=== PATIENT | male | born 1995 | race Caucasian/White ===

== ENCOUNTER 2017-11-08 14:46 | Emergency (ER) | payer SELFPAY ==
[2017-11-08 14:48] VITALS: BP 138/78; PULSE 82; RESP 18; TEMP 36.6; O2SAT 99
--- NOTE | 2017-11-08 14:52 | DI.RAD.S_ITS ---
PROCEDURE: XR ANKLE RT MIN 3V INDICATIONS: difficult to bear weight TECHNIQUE: 3 views of the right ankle were acquired. COMPARISON: None. FINDINGS: Bones: No fractures or dislocations. Ankle mortise is normally aligned. No suspicious bony lesions. Soft tissues: No tibiotalar joint effusion. Achilles tendon appears normal. IMPRESSION: No ankle fracture or dislocation. Dictated by: Kian Cardoza M.D. on 11/08/2017 at 15:57 Approved by: Kian Cardoza M.D. on 11/08/2017 at 15:57
--- NOTE | 2017-11-08 16:43 | ED.LOWEXIN ---
HPI - Extremity Injury (Lower) <LV Freeman - Last Filed: 11/08/17 17:47> General Chief Complaint: Extremity Injury, Lower Stated Complaint: THINKS HE BROKE HIS RIGHT ANKLE Time Seen by Provider: 11/08/17 16:15 Source: patient Mode of arrival: ambulatory Limitations: no limitations History of Present Illness HPI Narrative: Patient presents with chief complaint of right ankle pain. He fell while skateboarding last . He states that he rolled his right ankle in. He feels it is not getting better. He has taken ibuprofen at home. He denies any numbness or tingling. He does work on his feet and works cutting trees. Denies any previous injury to that ankle. He is concerned it is broken. Review of Systems <SUKHWINDER Freeman - Last Filed: 11/08/17 17:47> Review of Systems GENERAL: Denies chills, fatigue, malaise, fever, sweats. HEENT: Denies sinus pain, ear pain, sore throat, difficulty swallowing, dizziness. RESPIRATORY: Denies dyspnea, cough, wheezing, hemoptysis, sputum. CARDIOVASCULAR: Denies chest pain, palpitations, orthopnea, edema, GASTROINTESTINAL: Denies nausea, vomiting, abdominal pain, diarrhea, constipation, melena. : Denies dysuria, frequency, incontinence, hematuria, urinary retention. MUSCULOSKELETAL: See HPI SKIN: Denies rash, skin lesions, or other NEUROLOGIC: Denies weakness, headache, numbness, change in speech, confusion, seizures, incoordination. PSYCHIATRIC: No concerning psychosocial issues. 12 point review of systems is negative except for those stated above Exam <SUKHWINDER Freeman - Last Filed: 11/08/17 17:47> Narrative Exam Narrative: GENERAL: This is a well-nourished, well-developed patient, no acute distress sitting on hallway. HEAD: Atraumatic. Normocephalic. No temporal or scalp tenderness. EYES: Pupils equal round and reactive. Extraocular motions intact. No scleral icterus. No injection or drainage. ENT: Nose without bleeding, purulent drainage or septal hematoma. Throat without erythema, tonsillar hypertrophy or exudate. Uvula midline. Airway patent. NECK: Trachea midline. No JVD or lymphadenopathy. Supple, nontender, no meningeal signs. CARDIOVASCULAR: Regular rate and rhythm without murmurs, gallops, or rubs. RESPIRATORY: Clear to auscultation. Breath sounds equal bilaterally. No wheezes, rales, or rhonchi. GASTROINTESTINAL: Abdomen soft, non-tender, nondistended. No hepato-splenomegaly, or palpable masses. No guarding. EXTREMITIES: Right foot has positive pedal pulses. Patient is able to extend and flex right foot, does complain of some pain right lateral malleolus with flexion. Patient is able to pronate and supinate right ankle with pain on pronation. Capillary refill less than 2 sec all toes right foot. BACK: Nontender without deformity or crepitance. No flank tenderness. NEURO: AOx3. SKIN: No rash or erythema. No ecchymosis noted right ankle. Slight swelling noted distal to lateral malleolus. Initial Vital Signs Initial Vital Signs: Vital Signs Temperature 97.8 F 11/08/17 14:48 Pulse Rate 82 11/08/17 14:48 Respiratory Rate 18 11/08/17 14:48 Blood Pressure 138/78 H 11/08/17 14:48 Pulse Oximetry 99 11/08/17 14:48 <Rufus Ryan MD - Last Filed: 11/12/17 08:22> Initial Vital Signs Initial Vital Signs: Vital Signs Temperature 97.8 F 11/08/17 14:48 Pulse Rate 82 11/08/17 14:48 Respiratory Rate 18 11/08/17 14:48 Blood Pressure 138/78 H 11/08/17 14:48 Pulse Oximetry 99 11/08/17 14:48 Course <SUKHWINDER Freeman - Last Filed: 11/08/17 17:47> Orders Ordered: ED Orders 11/08/17 14:52 XR ankle RT min 3V Stat Vital Signs - 8 hr 11/08/17 14:48 Temperature 97.8 F Pulse Rate 82 Respiratory Rate 18 Blood Pressure 138/78 H Pulse Oximetry 99 <Rufus Ryan MD - Last Filed: 11/12/17 08:22> Orders Ordered: ED Orders 11/08/17 14:52 XR ankle RT min 3V Stat Vital Signs - 8 hr 11/08/17 14:48 Temperature 97.8 F Pulse Rate 82 Respiratory Rate 18 Blood Pressure 138/78 H Pulse Oximetry 99 MDM - Extremity Injury (Lower) <Shiela CorreiaBERKLEYP-BC - Last Filed: 11/08/17 17:47> Imaging Data right ankle xray: Radiologist's impression: View Report History [address] [address] XRay Report Signed Patient: Navi Moreon MR#: [id number] : 1995 Acct:[id number] Age/Sex: 22 / M Date of Service: 11/08/17 Loc: ED Accession Number: [id number] Procedure: XR ankle RT min 3V Ordering Provider: Rufus Ryan M.D. PROCEDURE: XR ANKLE RT MIN 3V INDICATIONS: difficult to bear weight TECHNIQUE: 3 views of the right ankle were acquired. COMPARISON: None. FINDINGS: Bones: No fractures or dislocations. Ankle mortise is normally aligned. No suspicious bony lesions. Soft tissues: No tibiotalar joint effusion. Achilles tendon appears normal. IMPRESSION: No ankle fracture or dislocation. Dictated by: Kian Cardoza M.D. on 11/08/2017 at 15:57 Approved by: Kian Cardoza M.D. on 11/08/2017 at 15:57 [facility] [place] Narrative Medical decision making narrative: Patient presented with right ankle pain Status post skateboarding accident last week. He states he internally rotated his foot. He had a negative x-ray, and has good range of motion and good strength. I discussed at length rest eyes compression and elevation as well as [id number] pain medications as needed. He declined a split or brace in the emergency department, stating he has one at home. 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 Discussed at length follow-up if worsening or no improvement. Discharge Plan Departure Patient Disposition: Home, Self-Care Clinical Impression: Acute right ankle pain Discharge Date/Time: 11/08/17 17:01 Interventions: ED Discharge Assessment Last Done: 11/08/17 17:00 Instructions: How To Perform RICE (Rest, Ice, Compress, Elevate), DI for Ankle Pain Activity Restrictions/Additional Instructions: Your x-ray came back negative for any acute fracture. I suggest rest, ice compression and elevation along with njyq-hxk-ehokjlb medications as needed and able. As we discussed follow up with your primary care provider if worsening or no improvement. You may need physical therapy or further imaging if worsening or no improvement. You can always use the ankle splint that you have at home for comfort. I am giving you a few days off of work; if you are not ready to go back, please follow-up with her primary care provider <Rufus Ryan MD - Last Filed: 11/12/17 08:22> Sign Out Provider Sign Out Attestation: The PA/MOLD PRESSER functioned independently for the care of this pt, I was available, but not asked to participate in care. I am unable to determine appropriateness of management without personally examining the pt.
--- NOTE | 2017-11-08 16:50 | ED_ITS ---
HPI - Extremity Injury (Lower) <LV Freeman - Last Filed: 11/08/17 17:47> General Chief Complaint: Extremity Injury, Lower Stated Complaint: THINKS HE BROKE HIS RIGHT ANKLE Time Seen by Provider: 11/08/17 16:15 Source: patient Mode of arrival: ambulatory Limitations: no limitations History of Present Illness HPI Narrative: Patient presents with chief complaint of right ankle pain. He fell while skateboarding last . He states that he rolled his right ankle in. He feels it is not getting better. He has taken ibuprofen at home. He denies any numbness or tingling. He does work on his feet and works cutting trees. Denies any previous injury to that ankle. He is concerned it is broken. Review of Systems <SUKHWINDER Freeman - Last Filed: 11/08/17 17:47> Review of Systems GENERAL: Denies chills, fatigue, malaise, fever, sweats. HEENT: Denies sinus pain, ear pain, sore throat, difficulty swallowing, dizziness. RESPIRATORY: Denies dyspnea, cough, wheezing, hemoptysis, sputum. CARDIOVASCULAR: Denies chest pain, palpitations, orthopnea, edema, GASTROINTESTINAL: Denies nausea, vomiting, abdominal pain, diarrhea, constipation, melena. : Denies dysuria, frequency, incontinence, hematuria, urinary retention. MUSCULOSKELETAL: See HPI SKIN: Denies rash, skin lesions, or other NEUROLOGIC: Denies weakness, headache, numbness, change in speech, confusion, seizures, incoordination. PSYCHIATRIC: No concerning psychosocial issues. 12 point review of systems is negative except for those stated above Exam <SUKHWINDER Freeman - Last Filed: 11/08/17 17:47> Narrative Exam Narrative: GENERAL: This is a well-nourished, well-developed patient, no acute distress sitting on hallway. HEAD: Atraumatic. Normocephalic. No temporal or scalp tenderness. EYES: Pupils equal round and reactive. Extraocular motions intact. No scleral icterus. No injection or drainage. ENT: Nose without bleeding, purulent drainage or septal hematoma. Throat without erythema, tonsillar hypertrophy or exudate. Uvula midline. Airway patent. NECK: Trachea midline. No JVD or lymphadenopathy. Supple, nontender, no meningeal signs. CARDIOVASCULAR: Regular rate and rhythm without murmurs, gallops, or rubs. RESPIRATORY: Clear to auscultation. Breath sounds equal bilaterally. No wheezes , rales, or rhonchi. GASTROINTESTINAL: Abdomen soft, non-tender, nondistended. No hepato-splenomegaly , or palpable masses. No guarding. EXTREMITIES: Right foot has positive pedal pulses. Patient is able to extend and flex right foot, does complain of some pain right lateral malleolus with flexion. Patient is able to pronate and supinate right ankle with pain on pronation. Capillary refill less than 2 sec all toes right foot. BACK: Nontender without deformity or crepitance. No flank tenderness. NEURO: AOx3. SKIN: No rash or erythema. No ecchymosis noted right ankle. Slight swelling noted distal to lateral malleolus. Initial Vital Signs Initial Vital Signs: Vital Signs Temperature 97.8 F 11/08/17 14:48 Pulse Rate 82 11/08/17 14:48 Respiratory Rate 18 11/08/17 14:48 Blood Pressure 138/78 H 11/08/17 14:48 Pulse Oximetry 99 11/08/17 14:48 <Rufus Ryan MD - Last Filed: 11/12/17 08:22> Initial Vital Signs Initial Vital Signs: Vital Signs Temperature 97.8 F 11/08/17 14:48 Pulse Rate 82 11/08/17 14:48 Respiratory Rate 18 11/08/17 14:48 Blood Pressure 138/78 H 11/08/17 14:48 Pulse Oximetry 99 11/08/17 14:48 Course <SUKHWINDER Freeman - Last Filed: 11/08/17 17:47> Orders Ordered: ED Orders 11/08/17 14:52 XR ankle RT min 3V Stat Vital Signs - 8 hr 11/08/17 14:48 Temperature 97.8 F Pulse Rate 82 Respiratory Rate 18 Blood Pressure 138/78 H Pulse Oximetry 99 <Rufus Ryan MD - Last Filed: 11/12/17 08:22> Orders Ordered: ED Orders 11/08/17 14:52 XR ankle RT min 3V Stat Vital Signs - 8 hr 11/08/17 14:48 Temperature 97.8 F Pulse Rate 82 Respiratory Rate 18 Blood Pressure 138/78 H Pulse Oximetry 99 MDM - Extremity Injury (Lower) <Shiela CorreiaBERKLEYP-BC - Last Filed: 11/08/17 17:47> Imaging Data right ankle xray: Radiologist's impression: View Report History [address] [address] XRay Report Signed Patient: Navi Moreno MR#: [id number] : 1995 Acct:[id number] Age/Sex: 22 / M Date of Service: 11/08/17 Loc: ED Accession Number: [id number] Procedure: XR ankle RT min 3V Ordering Provider: Rufus Ryan M.D. PROCEDURE: XR ANKLE RT MIN 3V INDICATIONS: difficult to bear weight TECHNIQUE: 3 views of the right ankle were acquired. COMPARISON: None. FINDINGS: Bones: No fractures or dislocations. Ankle mortise is normally aligned. No suspicious bony lesions. Soft tissues: No tibiotalar joint effusion. Achilles tendon appears normal. IMPRESSION: No ankle fracture or dislocation. Dictated by: Kian Cardoza M.D. on 11/08/2017 at 15:57 Approved by: Kian Cardoza M.D. on 11/08/2017 at 15:57 [facility] Narrative Medical decision making narrative: Patient presented with right ankle pain Status post skateboarding accident last week. He states he internally rotated his foot. He had a negative x-ray, and has good range of motion and good strength. I discussed at length rest eyes compression and elevation as well as rcro-blf-cigtrmo pain medications as needed. He declined a split or brace in the emergency department, stating he has one at home. 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 Discussed at length follow-up if worsening or no improvement. Discharge Plan Departure Patient Disposition: Home, Self-Care Clinical Impression: Acute right ankle pain Discharge Date/Time: 11/08/17 17:01 Interventions: ED Discharge Assessment Last Done: 11/08/17 17:00 Instructions: How To Perform RICE (Rest, Ice, Compress, Elevate), DI for Ankle Pain Activity Restrictions/Additional Instructions: Your x-ray came back negative for any acute fracture. I suggest rest, ice compression and elevation along with ulzb-qzl-hyooceu medications as needed and able. As we discussed follow up with your primary care provider if worsening or no improvement. You may need physical therapy or further imaging if worsening or no improvement. You can always use the ankle splint that you have at home for comfort. I am giving you a few days off of work; if you are not ready to go back, please follow-up with her primary care provider <Rufus Ryan MD - Last Filed: 11/12/17 08:22> Sign Out Provider Sign Out Attestation: The PA/PRIMER CHARGING TOOL SETTER functioned independently for the care of this pt, I was available, but not asked to participate in care. I am unable to determine appropriateness of management without personally examining the pt.
== END 2017-11-08 17:01 | disposition home or self-care (01) ==
PROVIDERS: Emergency Provider Nurse Practitioner Family
DX: M25.571 Pain in right ankle and joints of right foot (principal)
CPT/HCPCS: 73610; 99282; 99283

== ENCOUNTER 2018-01-28 10:03 | Emergency (ER) | payer OTHER, MEDICAID, SELFPAY ==
[2018-01-28 10:05] VITALS: BP 136/97; PULSE 67; RESP 15; TEMP 36.6; O2SAT 100
[2018-01-28 10:18] VITALS: BP 136/97; PULSE 67; RESP 15; TEMP 36.6; O2SAT 100
[2018-01-28 10:30] VITALS: BP 140/89; PULSE 74; RESP 20; O2SAT 99
--- NOTE | 2018-01-28 10:31 | ED.ALLEREA ---
HPI - Allergic Reaction General Chief complaint: Allergic Reaction Stated complaint: BIT ON BACK OF HEAD, NOT SURE WHAT, TROUBLE BREATH Time Seen by Provider: 01/28/18 10:30 Source: patient Mode of arrival: ambulatory Limitations: no limitations History of Present Illness HPI narrative: 22 y/o male here for possible allergic reaction. he states that he thought he was stung by a bee on the back of his head. Happened just prior to arrival. never had a reaction to this before. has not tried anything for it. no SBO but does describe chest pain. Related Data Previous Rx's Medication Instructions Recorded epinephrine [EpiPen 2-Nikita] 0.3 mg IM Q10M PRN #2 each 01/28/18 prednisone 50 mg PO DAILY #3 tab 01/28/18 Allergies Allergy/AdvReac Type Severity Reaction Status Date / Time No Known Drug Allergies Allergy Verified 01/28/18 10:35 Review of Systems Constitutional Denies fever(s) and Denies headache(s) ENT Ears, Nose, Mouth, and Throat: Denies dizziness and Denies headache(s) Cardiovascular Reports chest pain, Denies syncope, Denies palpitations and Denies dyspnea Respiratory Denies cough and Denies dyspnea Gastrointestinal Gastrointestinal: Denies abdominal pain, Denies nausea and Denies vomiting Musculoskeletal Denies myalgias, Denies arthralgias and Denies numbness Integumentary/Breasts Denies rash Neurologic Denies dizziness, Denies syncope, Denies headache(s) and Denies numbness Endocrine Denies palpitations PFSH Medical History Healthy adult (Acute) Surgical History No pertinent past surgical history (Acute) Social History Smoking Status: Never smoker Exam Initial Vital Signs Initial Vital Signs: Vital Signs Temperature 97.8 F 01/28/18 10:05 Pulse Rate 67 01/28/18 10:05 Respiratory Rate 15 01/28/18 10:05 Blood Pressure 136/97 H 01/28/18 10:05 Pulse Oximetry 100 01/28/18 10:05 Const General: cooperative, well developed, well groomed and anxious Orientation: alert, awake and oriented x3 HENMT Face and sinus: normal facial exam Mouth: oral mucosae normal, lip normal and tongue normal Resp Effort & Inspection: normal respiratory effort Auscultation: clear to auscultation bilaterally Cardio Rate: regular rate Rhythm: regular rhythm Pulses: radial pulses present GI Inspection: non-distended Palpation: soft, No firm and No tender Skin Lesions: no lesions Neuro General: alert, awake and oriented x3 Extrem General: normal to inspection and capillary refill normal Psych Appearance: grossly normal and well kempt Mood: anxious mood Course Orders Ordered: Discontinued Medications Diphenhydramine HCl (Benadryl) 25 mg IV NOW ONE Stop: 01/28/18 10:31 Last Admin: 01/28/18 10:45 Dose: 25 mg Diphenhydramine HCl (Benadryl) 25 mg IV NOW ONE Stop: 01/28/18 11:33 Last Admin: 01/28/18 11:43 Dose: 25 mg Sodium Chloride (Normal Saline 0.9%) 1,000 mls @ 1,000 mls/hr IV BOLUS ONE Stop: 01/28/18 11:29 Last Infusion: 01/28/18 11:28 Dose: 0 mls/hr Admin: 01/28/18 10:46 Dose: 1,000 mls/hr Methylprednisolone (Solu-Medrol 125 Mg Vial) 125 mg IV NOW ONE Stop: 01/28/18 10:31 Last Admin: 01/28/18 10:45 Dose: 125 mg Vital Signs - 8 hr 01/28/18 10:05 01/28/18 10:18 Temperature 97.8 F 97.8 F Pulse Rate 67 67 Respiratory Rate 15 15 Blood Pressure 136/97 H 136/97 H Pulse Oximetry 100 100 MDM - Allergic Reaction MDM Narrative Medical decision making narrative: no rash upon arrival but did develop a rash while here. NO N?V or SOB. he was given steriods and benadryl. did not receive epi. improved after these medications. no return of sx while in the ER. will send home with epi pen and steroids. pt was given return precautions. he expressed understanding and agreement with plan. Discharge Plan Departure Patient Disposition: Home Clinical Impression: Allergic reaction Discharge Date/Time: 01/28/18 12:32 Interventions: ED Discharge Assessment Last Done: 01/28/18 12:30 Instructions: DI for General Allergic Reactions Activity Restrictions/Additional Instructions: Start taking the prednisone tomorrow as directed. I would recommend that you buy Benadryl [id number] and start taking that like we discussed. Return to the emergency department for any new or worsening symptoms. Prescriptions: New prednisone 50 mg tablet 50 mg PO DAILY Qty: 3 RF: 0 epinephrine [EpiPen 2-Nikita] 0.3 mg/0.3 mL auto-injector 0.3 mg IM Q10M PRN (Reason: hypersensitivity reaction) Qty: 2 RF: 0
[2018-01-28] MEDS: diphenhydrAMINE 50 MG/ML VIAL 25 MG IV ×2 (10:45→11:43)
[2018-01-28] MEDS: methylPREDNISolone 125 MG/2 ML VIAL IV (10:45)
[2018-01-28] MEDS: SODIUM CHLORIDE 0.9% 1,000 ML 1000 ML IV (10:46)
[2018-01-28 11:03] VITALS: BP 127/85; PULSE 67; O2SAT 97
[2018-01-28 11:27] VITALS: BP 113/81; PULSE 63; RESP 15; O2SAT 100
[2018-01-28 12:10] VITALS: BP 124/84; PULSE 65; O2SAT 100
== END 2018-01-28 12:32 | disposition home or self-care (01) ==
PROVIDERS: Emergency Provider Emergency Medicine
DX: T78.40XA Allergy, unspecified, initial encounter (principal)
CPT/HCPCS: 96361; 96374; 96375; 96376; 99283; 99284; J1200; J2930